=== PATIENT | female | born 1945 | race Caucasian/White ===

== ENCOUNTER → 2020-05-18 | Outpatient (CLI) | payer MEDICARE ==
[~2020-05-18] MED LIST: ASPI-556 PO; BETA1TAB20 PO; BUPR-47 PO; CHOL200059 PO; CLON0.5T4 PO; DULO30CA52 PO; FLUT16H NASAL; GABA-531 PO; IBUP-2077 PO; INSTAFLEX PO; L.AC1CAP6 PO; ROSU5TAB12 PO; TRAZ-185 PO; UBID200C18 PO
== END | disposition home or self-care (01) ==
LOC: RAH 14:33
PROVIDERS: ATTEND Orthopaedic Surgery
DX: M19.011 Primary osteoarthritis, right shoulder (principal)
CPT/HCPCS: 73221